=== PATIENT | female | born 1965 | race Two or more races ===

== ENCOUNTER 2016-05-10 05:32 | Day surgery (SDC) | payer OTHER ==
[2016-05-10] MEDS ORDERED: IV START KIT ONE (05:42)
[2016-05-10] MEDS ORDERED: LACTATED RINGERS 1,000 ML ONE ×2 (05:42→08:43)
[2016-05-10] MEDS ORDERED: CEFAZOLIN SODIUM 2 GRAM PREMIX 100 ML IV PRN (05:45)
[2016-05-10] MEDS ORDERED: CEFAZOLIN SODIUM 2 GRAM PREMIX 100 ML IV ONE (05:49)
[2016-05-10] MEDS ORDERED: METOCLOPRAMIDE HCL 5 MG/ML 2ML VIAL ONE (06:51)
[2016-05-10] MEDS ORDERED: MIDAZOLAM HCL 1 MG/ML 2ML VIAL ONE (06:51)
[2016-05-10] MEDS ORDERED: PROPOFOL 40 ML IV ONE (06:51)
[2016-05-10] MEDS ORDERED: DEXAMETHASONE SOD PHOS 4 MG/1 ML VIAL ONE (06:51)
[2016-05-10] MEDS ORDERED: LIDOCAINE 2% (MULTI DOSE) 10 ML VIAL ONE (06:51)
[2016-05-10] MEDS ORDERED: ONDANSETRON 4 MG/2ML 2 ML VIAL ONE (06:51)
[2016-05-10] MEDS ORDERED: FENTANYL 100 MCG/2 ML VIAL ONE ×2 (06:52→08:43)
[2016-05-10] MEDS ORDERED: BUPIVACAINE 0.25% (PRES FREE) 30 ML VIAL ONE (06:52)
[2016-05-10] MEDS ORDERED: KETOROLAC TROMETHAMINE 30 MG/ML 1 ML VIAL ONE (08:05)
--- NOTE | 2016-05-10 08:20 | PCMBPN ---
Brief Post Op Note: Date of Procedure: 05/10/16 Preoperative Diagnosis: 1.right knee lateral meniscal tear and intra-articular ganglion cyst Postoperative Diagnosis: 1. 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 Oxycodone for pain control. ASA for DVT prophylaxis.
[2016-05-10] MEDS ORDERED: ATROPINE SULFATE 0.4 MG/1 ML VIAL IV PRN (08:44)
[2016-05-10] MEDS ORDERED: PROMETHAZINE HCL 25 MG/ML VIAL IM PRN (08:44)
[2016-05-10] MEDS ORDERED: HYDROMORPHONE HCL 1 MG/ML SYRINGE IV PRN (08:44)
[2016-05-10] MEDS ORDERED: ONDANSETRON 4 MG/2ML 2 ML VIAL IV PRN ×2 (08:44→08:55)
[2016-05-10] MEDS ORDERED: FENTANYL 100 MCG/2 ML VIAL IV PRN (08:44)
[2016-05-10] MEDS ORDERED: NALOXONE HCL 0.4 MG/ML VIAL IV PRN (08:44)
[2016-05-10] MEDS ORDERED: LACTATED RINGERS 1,000 ML IV SCH ×2 (08:45→08:55)
--- NOTE | 2016-05-10 08:51 | HP ---
DATE OF CLINIC: 05/07/2016 MADHAVI ROSADO : 1965 PLANNED PROCEDURE: Right Knee Arthroscopic Lateral Meniscal Tear Debridement and Possible Cyst Decompression DATE OF SURGERY: May 10, 2016 SURGEON: Juvenal Greer M.D. HISTORY OF PRESENT ILLNESS Madhavi Rosado is a 50 year old female. * Medication list reviewed with patient allergy list reviewed with patient. The patient is a 50-year-old female whom we have seen for a number of different problems. She continues to have problems with right knee pain. She continues to have knee pain when getting out of a chair, more on the lateral side than the medial side. She describes the pain along the lateral joint line. Patient has had an MRI in the past, which was not significant for any signs of a meniscal tear. She did however have some degenerative changes. Because of this persistent pain and the suggestion that this may be mechanical, the patient agreed to have a repeat MRI. This MRI was performed on 02/17/2016. In the past, the patient has had good pain relief with a steroid injection into the knee. This was last performed back in July 2015. The patient did see Lazaro in late 2015. He talked to her about the intra-articular ganglion cyst seen on the sagittal images, as well as some of the medial compartment degenerative changes. She is here today to talk to me about her options, both non-operative and operative. When patient walks, she walks with an antalgic gait. She limps, significant to her right knee pain. We discussed the risks and benefits of non-operative and surgical treatment and she has elected to proceed with surgery. She presents today preoperatively. CURRENT MEDICATION * *Supplement Miscellaneous as directed gummies for skin, hair and nails, 0 days, 0 refills * Mucinex Fast-Max Cold & Sinus 10-5-325 MG Capsule 0 days, 0 refills * Tylenol 325 MG Tablet as needed 0 days, 0 refills * Voltaren 1 % Gel apply 1 gram to Right wrist BID., 30 days, 0 refills PAST MEDICAL/SURGICAL HISTORY Reported: LMP: 2009, Last pap smear date 2014, and Last mammogram date: 09/15/2015. Medical: No reported medical history or no significant history. Depression. Surgical / Procedural: Prior surgery Right shoulder surgery. : 5, para 4, aborta 1 and history of the : section x4. Diagnoses: Menopause Surgical: * Orthopedic surgery Bilateral Wrist surgery for Tendonitis SOCIAL HISTORY Behavioral: Daily coffee consumption and daily tea consumption. No tobacco use, not a current smoker, not a former smoker, and not chewing tobacco. Previously smoked. Smoking status: Never smoker. Alcohol: No consumption of alcohol. Alcohol use. Drug Use: Not using drugs. Habits: Good exercise habits. Home Environment: Does not live alone lives with 4 children. Marital: Single pt has a boyfriend and with boyfriend. ALLERGIES * No Known Allergies FAMILY HISTORY Mother ill Cancer, hypertension 4 children living Family medical history: No significant family history Hypertension mom REVIEW OF SYSTEMS Systemic: No fever and no recent weight change. Cardiovascular: No chest pain or discomfort and no palpitations. Pulmonary: No cough and no wheezing. Gastrointestinal: No nausea, no vomiting, no abdominal pain, and no diarrhea. Hematologic: No easy bleeding (no blood clots). Skin: No skin lesions and no rash. PHYSICAL FINDINGS * Vitals taken 05/07/2016 01:39 pm BP-Sitting R 148/78 mmHg 100 - 120/56 - 80 BP Cuff Size Regular Pulse Rate-Sitting 68 bpm 50 - 100 Pulse Rhythm Regular Temp-Oral 97.8 F 96 - 101 Height 58.2 in 59 - 69 Weight 153 lbs 98 - 183 Body Mass Index 31.8 kg/m2 Body Surface Area 1.63 m2 Pain Level 6 General Appearance: * Well developed. * In no acute distress. Eyes: General/bilateral: Extraocular Movements: * Normal. Lungs: * Clear to auscultation. * No wheezing was heard. * No rales/crackles were heard. Cardiovascular: Heart Rate and Rhythm: * Heart rate was normal. * Heart rhythm regular. Abdomen: Palpation: * Abdominal non-tender. Neurological: * Oriented to time, place, and person. I examined the patient's right and left knee. She is very tender over the lateral joint line, along the medial femoral condyle. She is not tender on her left side. She is tender over her IT band, as well the Gerdy tubercle. However, flexion as well as weight-bearing does make increased pain on the lateral side. PHYSICAL FINDINGS RIGHT EXTREMITY Knee General Appearance: no signs of contusion, swelling or edema Neurologic: Gross sensation to light touch was present in the distribution of DP/SP nerves Vascular: 2+ PT pulse, capillary refill less then 2 seconds is present Motor: 5 out of 5 strength quad, EHL, TA, GA, peroneals Range of Motion AROM: 0-115 degrees (painful laterally in flexion and extension) PROM: 0-120 degrees Focused Exam Findings: Patella Pateller tilt: neutral Patella non tender to touch No audible crepitus Knee Joint Medial joint line: non tender MFC: Non-tender Lateral joint line: PAIN, Tender to touch Bart exam: normal Anterior drawer: normal Morena maneuver: no snapping, LATERAL PAIN Stable to varus and valgus stress at 0 and 30 degrees; PAIN with stressing lateral knee IT Band PAIN with palpation of IT Band at lateral knee PHYSICAL FINDINGS LEFT EXTREMITY Knee General Appearance: no signs of contusion, scars, swelling or edema Neurologic: Gross sensation to light touch was present in the distribution of DP/SP nerves Vascular: 2+ PT pulse, capillary refill less then 2 seconds is present Motor: 5 out of 5 strength quad, EHL, TA, GA, peroneals Range of Motion AROM: 0 to 125 degrees PROM: 0 to 130 degrees Focused Exam Findings: Patella Pateller tilt: neutral Patella non tender to touch Knee Joint Medial joint line: non tender Lateral joint line: non tender Squat test with hyperflexion: no pain Bart exam: normal Anterior drawer: normal Morena maneuver: no snapping, pain negative Stable to varus and valgus stress at 0 and 30 degrees IMAGING 2.--CXR: No acute cardiopulmonary problems are appreciated MRI performed on 02/17/2016. The radiologist feels that the sagittal images, especially , shows a change in shape of the lateral meniscus' posterior horn, consistent with a meniscal tear. This does appear to be different than her previous MRI. The patient's ganglion cyst is just posterior to the ACL in the notch. Some of this intra-articular ganglion cyst is posterior to the PCL. On the coronal images, this ganglion cyst can be better seen. I also showed the patient that on the axial images the location of this cyst, which is posterior lateral in the knee itself. I think most of this ganglion cyst is probably an incidental finding. I think some of her pain can be explained by this meniscal tear, especially seeing her previous MRI, which was normal. X-rays performed on February 02, 2016 demonstrate a standing AP and flex knee views of the right and left knees. She has a minimal amount of osteoarthritic changes of the right knee normal views of the left knee. No signs of any patellofemoral abnormalities are appreciated. I compare these to her previous x-rays, I think they look the same. I then reviewed the patient's right knee MRI from September 02, 2014. There appears to be no signs of a lateral or medial meniscal tear on the coronal images. On the sagittal images the patient has intact ACL and PCL. I did not appreciate a large effusion in the knee and relatively normal cartilaginous surfaces. I think the MCL and LCL appear to be intact. ASSESSMENT Right knee chronic pain, internal derangement Right knee mild osteoarthritis Possible lateral meniscal tear, right PLAN * OTHER OxyCODONE HCl 5 MG TABS, as directed: one tab by mouth every 4-6 hours as needed for pain, 7 days, 0 refills Aspirin 325 MG TABS, as directed: one tab by mouth every day for 30 days after surgery, 30 days, 0 refills Juvenal Greer MD ordered the following therapy * Knee Arthroscopy (Right) with lateral meniscal tear debridement THERAPY * Patient not eligible for fall risk assessment. SURGICAL CONSENT We have discussed surgical options including right knee arthroscopic lateral meniscal tear debridement and possible cyst debridement vs non-operative management. The patient and I discussed her options. I think her pain will improve with a lateral meniscal tear debridement. I think some of her pain is coming from her arthritis but he catching may be due to this meniscal tear. I spoke to her about how I plan to perform an arthroscopic debridement of the lateral meniscus and possible cyst decompression. We discuss possible risks associated with the surgery such as persistent pain, DVT, infection, anesthesia risks as well as other possible problems. The patient then signed the consent form and we discussed the post-op rehab plan. The patient was counseled in detail regarding the diagnosis, treatment options available, prognosis of each treatment option and the potential risks and complications. The risks of surgery include, but are not limited to, anesthetic , neurovascular complications, pulmonary embolism, deep vein thrombosis, wound dehiscence, failure of any or all of the discussed procedures, infection of the joint or surrounding soft tissue, need for revision surgery, chronic pain, limitations in activities of daily living, inability to return to work, and loss of normal range of motion or functional use of the extremity. There is the possibility of failure over time that may require additional operative or non-operative treatment. The patient acknowledged that there are a number of perioperative risks not mentioned here and would still like to proceed. The patient is aware of and understands these risks, and wishes to proceed with the proposed surgical procedure and other procedures as indicated at the time of surgery. The patient has seen her PCP for a preoperative medical risk assessment. The preoperative instructions were reviewed with the patient and all questions were answered. CARE TEAM Homero Cardoza MD [facility] BLP/sg
[2016-05-10] MEDS ORDERED: DIPHENHYDRAMINE HCL 50 MG/1 ML VIAL IV PRN (08:55)
[2016-05-10] MEDS ORDERED: MORPHINE SULFATE 2 MG/ML SYRINGE IV PRN (08:55)
[2016-05-10] MEDS ORDERED: OXYCODONE HCL 5 MG TABLET PO PRN (08:55)
[2016-05-10] MEDS ORDERED: OXYCODONE HCL 5 MG TABLET ONE (10:15)
--- NOTE | 2016-05-11 09:36 | OP ---
GREG ROSADO : 1965 V [id number] DATE OF PROCEDURE: May 10, 2016 PREOPERATIVE DIAGNOSIS: Right knee lateral meniscal tear and intraarticular ganglion cyst. POSTOPERATIVE DIAGNOSIS: Right knee lateral meniscus tear and medial femoral condyle chondromalacia. PROCEDURE: Right knee arthroscopic debridement of lateral meniscal tear. SURGEON: Juvenal Greer M.D. STAGE RIGGER: Lucy MEJIA ANESTHESIA: General along with 30cc of 0.25% Marcaine without epinephrine injected into each of the arthroscopic portal sites to help with postop pain relief. PERTINENT FINDINGS: The patient had an arthroscopic [id number] lateral meniscal tear matching the location seen on the MRI. The patient preoperatively had a fair amount of lateral meniscal pain and snapping. This was debrided back to a stable rim. I examined the ACL. I did not see any ganglion cyst as seen on the MRI. However, I did debride the synovium around the ACL and PCL examining this. In terms of the medial compartment, the patient had a stable medial meniscus. She did have evidence of type II chondromalacia on the medial femoral condyle. No abnormalities were seen in the trochlea or on the undersurface of the patella. CONDITION: The patient was extubated with stable vital signs and transferred to the PACU. COMPLICATIONS: None IV FLUIDS: 900 cc of LR URINE OUTPUT: 0 EBL: 10 cc TOURNIQUET TIME: N/A SPECIMENS: N/A IMPLANTS: None DRAINS: N/A PLAN: The patient will be weightbearing as tolerated on the right lower extremity, oxycodone will be used for pain control, aspirin will be given to the patient for postop DVT prophylaxis. INDICATIONS: The patient is a 50-year-old female who has had persistent pain in her knee that is worse on the lateral aspect. The patient has had 2 MRI's; the first was in 2014, the second was in 2016, which corresponded with a lateral meniscal tear, which is also significant for her painful snapping and pain which is on the lateral aspect of her jointline. I talked to the patient regarding my findings. I thought that potentially this meniscal tear could be causing irritation and bothering the patient. I told her if these mechanical symptoms do occur then a debridement of this meniscus may help her. I told her that this is not a guarantee at all that her symptoms will resolve. We talked about the risks and benefits of this procedure and after reviewing this with the patient she decided to proceed. PROCEDURE DESCRIPTION: The patient was seen in the preoperative area where we confirmed the right side was the correct side. They agreed that the right side was the correct side and that our proposed procedure was a right knee arthroscopy and lateral meniscal tear debridement. The patient's right knee was marked with my initials and the word "yes". I signed and confirmed that the H&P was correct and updated. At this point in time with the patient's leg signed, the patient was brought from the preoperative area to the operating theater where they were placed on the OR table. A safety belt was placed and the patient was placed asleep without incident. The patient's right lower extremity was then placed in a knee de la torre and a tourniquet was placed, although it was not elevated for the procedure. The knee was then prepped and draped in sterile fashion first with a Chlorhexidine scrub and prep. Once the knee was prepped, the lateral peripatellar tendon incision was marked with a marking pen as well as the superolateral outflow portal. I then performed a final time out confirming that the right side was the correct side, that Ancef, 2 grams, had been given approximately 20 minutes prior to entering the room. The patient had SCD's on their left lower extremity for intraoperative DVT prophylaxis and xrays and MRI were up on the exam board. After everyone in the room confirmed that the right side was the correct side, 20 mL of 0.25% Marcaine without epinephrine was injected by our portal sites for postop pain relief. A #11 blade was now used with the knee flexed in 30 degrees of flexion to allow entry of my scope into the notch. With this in place I extended the knee placing the scope into the patellofemoral joint. I then used the #11 blade to make my lateral superior outflow portal. I then performed a diagnostic knee arthroscopy. Upon entering the knee joint, the patient had normal appearing facets on the undersurface of her patella and into the trochlea. On the undersurface of her medial femoral condyle she had a broad area of grade II chondromalacia. The surface on the tibial side appeared to be normal, as did her medial meniscus. I examined the ACL and PCL before probing it and I did not see any large ganglion cysts as seen on the MRI. Placing the leg in the figure of 4 position I was able to examine the lateral compartment. The patient had a modva-pb-tybic meniscal tear on the posterolateral aspect of the lateral meniscus. I used a spinal needle to make a medial peripatellar portal. I placed my arthroscopic probe into the compartment and probed this area. I thought on the undersurface there was a flap of tissue that may be causing her symptoms and debrided this back to a stable rim. I then rechecked this with a probe. I saw no other abnormalities of the meniscus. I then placed my probe into the intercondylar notch. I examined both the ACL and PCL. On the MRI the ganglion cyst was just posterior to the ACL. I used my shaver to remove the synovial tissue around the ACL and probed behind it. I could not appreciate any particular ganglion cyst that I was able to decompress. I reviewed the MRI and the cyst itself was located more posteromedially behind the PCL. I placed my scope behind the ACL. I did not see any large ganglion as described on the MRI. I then removed my scope, placed it in the patellofemoral joint and probed this. I saw no other areas of softening. At this point I confirmed good hemostasis and was ready to close. The incision was now closed with 4-0 nylon simple sutures. Next, 20mL of 0.25% Marcaine without epinephrine was injected at the portal sites. The patient's knee was checked for having good hemostasis and all needles counts were correct at the end of the case. The knee was covered with a DSD, CLARISA wrap and a cryo-cuff. The patient was awoken without difficulty and taken to the recovery room. The patient will be weightbearing as tolerated on the right lower extremity. She was given a Rx for oxycodone for pain control and aspirin for DVT prophylaxis. I attempted to answer all of her questions today talking with her family and we will see her back in f/u in approximately 1 week. ISMAEL/kadeem CC: [facility]
== END 2016-05-10 10:47 | disposition home or self-care (01) ==
LOC: SDC 05:32
PROVIDERS: ATTEND Orthopaedic Surgery
PROC: 0SBC4ZZ Excision of Right Knee Joint, Percutaneous Endoscopic Approach (ICD-10-PCS; principal; 2016-05-10)
DX: S83.281A Other tear of lateral meniscus, current injury, right knee, initial encounter (principal); M94.261 Chondromalacia, right knee